=== PATIENT | female | born 1975 | race Caucasian/White ===

== ENCOUNTER 2017-10-24 17:37 | Emergency (ER) | payer BC, OTHER ==
[~2017-10-24] VITALS: Ht 167.6 cm; Wt 65.0 kg
[2017-10-24 17:40] VITALS: Ht 167.6 cm; Wt 65.0 kg
[2017-10-24] MEDS ORDERED: FAMOTIDINE 20 MG INJ IV STA (17:59)
[2017-10-24] MEDS ORDERED: SOD CHLORIDE 0.9% 1,000 ML IV STA (17:59)
[2017-10-24] MEDS ORDERED: KETOROLAC 30 MG INJ IV STA (17:59)
--- NOTE | 2017-10-24 17:59 | ERD ---
ER Documentation Chief Complaint Chief Complaint C/O MID LOWER ABD PAIN N/V SINCE TODAY. HPI 41-year-old female, previously healthy, presents to the emergency department complaining of sudden onset of abdominal pain today at 4 in the morning that woke her up. The pain is diffuse, colicky, 5/10. Associated with bilious emesis 6, nausea and general malaise. The patient took ibuprofen with mild improvement of the symptoms. Denies fever, diarrhea, constipation. No history of abdominal surgery. History provided by patient ROS A 12-point review of systems was performed and negative other than presented in the history of present illness. SYSTEMIC symptoms: no fever, chills, no night sweats, no weight loss EYE symptoms: No blurred vision, no eye discharge OTOLARYNGEAL symptoms: No hearing loss. No ear pain, no sore throat CARDIOVASCULAR symptoms: No chest pain or discomfort, no palpitations. PULMONARY symptoms: No dyspnea, no cough, no wheezing. GASTROINTESTINAL symptoms: Per HPI MUSCULOSKELETAL symptoms: No arthralgias, no muscle aches. NEUROLOGY symptoms: No confusion, no syncope, no numbness or tingling. SKIN: No rashes Medications Home Meds Active Scripts Ondansetron Hcl* (Zofran*) 4 Mg Tablet, 4 MG PO Q6H Y for NAUSEA AND OR VOMITING , #12 TAB Prov:YUE MCGRATH MD 10/24/17 Ranitidine Hcl* (Ranitidine Hcl*) 150 Mg Tablet, 150 MG PO Q12, #30 TAB Prov:YUE MCGRATH MD 10/24/17 Dicyclomine Hcl* (Bentyl*) 10 Mg Capsule, 10 MG PO QID for PAIN, #20 CAP Prov:YUE MCGRATH MD 10/24/17 Hydrocodone/Acetaminophen ([place] 5-325 Tablet) 1 Each Tablet, 1 TAB PO Q6H Y for PAIN, #12 TAB Prov:YUE MCGRATH MD 10/24/17 Allergies Allergies: Coded Allergies: No Known Allergy (Unverified , 10/24/17) Physical Exam Vitals Vital Signs Date Time Temp Pulse Resp B/P Pulse Ox O2 Delivery O2 Flow Rate FiO2 10/24/17 17:40 98.0 104 16 128/74 99 Physical Exam Patient is in no acute distress, vital signs stable. Alert and fully oriented. EYES: PERRLA, EOMI, Sclera and conjunctiva appear normal. EARS: Canals clear, tympanic membranes WNL THROAT: Normal oropharynx. NECK: Supple, No lymphadenopathy. Full ROM without pain or tenderness. HEART: RRR, no rubs, murmurs, clicks or gallops. LUNGS: Clear to auscultation. ABDOMEN: Guarded, with diffuse tenderness to deep palpation, questionable rebound, McBurney negative EXTREMITIES: No edema bilaterally. BACK: Full ROM, no deformity, normal back exam NEURO: Cranial nerves grossly intact, no motor or sensory deficit Result Diagram: 10/24/17 1815 10/24/171814 Results 24 hrs Laboratory Tests Test 10/24/17 18:07 10/24/17 18:15 Bedside Urine pH (LAB) 6.0 Bedside Urine Protein (LAB) 1+ Bedside Urine Glucose (UA) Negative Bedside Urine Ketones (LAB) Trace Bedside Urine Blood 2+ Bedside Urine Nitrite (LAB) Negative Bedside Urine Leukocyte Esterase (L Negative White Blood Count 7.910^3/ul Red Blood Count 4.7810^6/ul Hemoglobin 16.0g/dl Hematocrit 44.2% Mean Corpuscular Volume 92.5fl Mean Corpuscular Hemoglobin 33.5pg Mean Corpuscular Hemoglobin Concent 36.2g/dl Red Cell Distribution Width 13.0% Platelet Count 81681^3/UL Mean Platelet Volume 10.5fl Neutrophils % % Segmented Neutrophils % (Manual) 59% Band Neutrophils % (Manual) 34% Lymphocytes % % Lymphocytes % (Manual) 2% Reactive Lymphocytes % (Manual) 2% Monocytes % % Monocytes % (Manual) 3% Eosinophils % % Basophils % % Nucleated Red Blood Cells % 0.0/100WBC Neutrophils # 10^3/ul Neutrophils # (Manual) 4.910^3/ul Band Neutrophils # 2.610^3/ul Absolute Lymphocytes (Manual) 0.110^3/ul Lymphocytes # 10^3/ul Reactive Lymphocytes # 0.110^3/ul Monocytes # 10^3/ul Absolute Monocytes (Manual) 0.210^3/ul Eosinophils # 10^3/ul Basophils # 10^3/ul Nucleated Red Blood Cells # 10^3/ul Platelet Estimate NORMAL Sodium Level 139mmol/L Potassium Level 4.0mmol/L Chloride Level 105mmol/L Carbon Dioxide Level 23mmol/L Anion Gap 15 Blood Urea Nitrogen 16mg/dl Creatinine 0.92mg/dl Glucose Level 123mg/dl Calcium Level 9.1mg/dl Total Bilirubin 0.6mg/dl Direct Bilirubin 0.00mg/dl Indirect Bilirubin 0.6mg/dl Aspartate Amino Transf (AST/SGOT) 26IU/L Alanine Aminotransferase (ALT/SGPT) 27IU/L Alkaline Phosphatase 59IU/L Total Protein 7.5g/dl Albumin 3.8g/dl Globulin 3.70g/dl Albumin/Globulin Ratio 1.02 Lipase 67U/L Current Medications Medications (Trade) Dose Ordered Sig/Barrett Route PRN Reason Start Time Stop Time Status Last Admin Dose Admin Sodium Chloride (NS) 1,000 ml @ 1,000 mls/hr Q1H STAT IV 10/24/17 17:59 10/24/17 18:58 DC 10/24/17 18:12 Famotidine (Pepcid Iv) 20 mg ONCE STAT IV 10/24/17 17:59 10/24/17 18:04 DC 10/24/17 18:24 Ketorolac Tromethamine (Toradol) 30 mg ONCE STAT IV 10/24/17 17:59 10/24/17 18:04 DC 10/24/17 18:24 Ondansetron HCl (Zofran Inj) 4 mg ONCE STAT IV 10/24/17 18:14 10/24/17 18:26 DC 10/24/17 18:28 Ondansetron HCl (Zofran Inj) 4 mg STK-MED ONCE .ROUTE 10/24/17 18:18 10/24/17 18:19 DC Procedures/[facility] 41-year-old female, previously healthy, presents to the emergency department with sudden onset of abdominal pain associated with bilious emesis. Vital signs stable, Physical exam revealed a diffusely tender abdomen with questionable peritoneal signs Differential diagnosis include but not limited to: UTI, colitis, gastroenteritis , kidney stones, irritable bowel syndrome, inflammatory bowel syndrome, malabsorption syndrome, cholelithiasis, food intolerance, medication side effect , pancreatitis, diverticulitis, bowel obstruction. Pertinent Data: Labs: CBC: normal, CMP: normal kidney and liver function, normal electrolytes. Lipase: normal Radiology: CT abdomen normal Physical examination and clinical presentation consistent most likely with acute gastroenteritis, no acute abdomen. During the ED course the patient remained stable, no new complaints. The patient received treatment with IV fluids, Toradol, Pepcid and Zofran presenting overall improvement of the symptoms. Results and clinical impression discussed with patient who agrees with management. The patient is stable to be treated outpatient and will be discharged home with a Rx for [place], ranitidine, Bentyl, Zofran, some side effects of prescribed medications (headache, rash, nausea, vomiting, diarrhea, drowsiness, habituation, bleeding, hypertension, interactions with other medications) were reviewed. The patient was instructed to follow up with the primary care provider in the next 48h. If symptoms persist, worsen or new symptoms develop, then patient should return to the ED immediately. Instructions explained and given directly by me to the patient in [place]ese with acknowledgment and demonstrated understanding. Disclaimer: Inadvertent spelling and grammatical errors are likely due to EHR/ dictation software use and do not reflect on the overall quality of patient care. Also, please note that the electronic time recorded on this note does not necessarily reflect the actual time of the patient encounter. Departure Diagnosis: Primary Impression: Abdominal pain Additional Impression: Gastroenteritis Condition: Stable Patient Instructions: Abdominal Pain Additional Instructions: Call your primary care doctor TOMORROW for an appointment during the next 1-2 days. See the doctor sooner or return here if your condition worsens before your appointment time. Thank you very much for allowing us to participate in your care. Your health and safety is our top priority at [facility]. Have prescriptions filled and follow precisely the directions on the label. Follow-up with primary care provider during the next 4 days and bring all the information and medications prescribed. If illness has not improved in 2 days, then make an appointment with primary care provider. If the provider is unavailable, return to the Emergency Department immediately. YUE MCGRATH MD Oct 24, 2017 17:59
[2017-10-24 18:06] LABS: URINE BLOOD (Dip) POC 2+ (NEGATIVE)
[2017-10-24] MEDS ORDERED: ONDANSETRON 4 MG INJ IV STA (18:14)
[2017-10-24] MEDS ORDERED: ONDANSETRON 4 MG INJ ONE (18:18)
[2017-10-24 18:32] LABS: ABNORMAL IP MESSAGE 1; HEMATOCRIT 44.2 % (37.0-47.0); MEAN CORPUSCULAR HEMOGLOBIN 33.5 pg (29.0-33.0); MEAN CORPUSCULAR HGB CONC 36.2 g/dl (32.0-37.0); MEAN CORPUSCULAR VOLUME 92.5 fl (82.0-101.0); MEAN PLATELET VOLUME 10.5 fl (7.4-10.4); PLATELET COUNT 279 10^3/UL (140-415); RED BLOOD COUNT 4.78 10^6/ul (4.20-5.40); WHITE BLOOD COUNT 7.9 10^3/ul (4.8-10.8)
[2017-10-24 18:34] LABS: POSITIVE DIFF @See below
[2017-10-24 19:00] LABS: ALBUMIN 3.8 g/dl (3.3-4.9); ALBUMIN/GLOBULIN RATIO 1.02; BILIRUBIN,INDIRECT 0.6 mg/dl (0-1.1); BILIRUBIN,TOTAL 0.6 mg/dl (0.2-1.3); CALCIUM 9.1 mg/dl (8.4-10.2); CREATININE 0.92 mg/dl (0.44-1.00); TOTAL PROTEIN 7.5 g/dl (6.1-8.1)
--- NOTE | 2017-10-24 19:18 | RADRPT ---
PROCEDURE: CT Abdomen and Pelvis without contrast. CLINICAL INDICATION: Abdominal pain. TECHNIQUE: A CT scan of the abdomen and pelvis was performed without intravenous contrast. Tolbert l and sagittal reformatted images were generated. DICOM images are available. Images were reviewed o n a high-resolution PACS workstation. CTDIvol: 8.29 mGy. DLP: 456.89 mGy-cm. One or more of the following dose reduction techniques were used: - Automated exposure control. - Adjustment of the mA and/or kV according to patient size. - Use of iterative reconstruction technique. COMPARISON: None. FINDINGS: The lung bases are clear. Evaluation of the abdominal and pelvic viscera is limited by the lack of oral and intravenous contra st. There is a 1.5 cm right hepatic cyst. The gallbladder is normal in appearance. The common bile duct is not dilated. The spleen is not enlarged. No pancreatic lesion is identified and there is no pancr eatic ductal dilatation. The adrenal glands are unremarkable. The kidneys are normal in size. There is no perinephric fat stranding. No hydronephrosis is seen. No urinary stone is identified. The small and large bowel are normal in caliber. There is no bowel wall thickening. The appendix is normal. The urinary bladder is unremarkable. The pelvic organs are within normal limits. No lymphadenopathy is identified. There is no ascites. No pneumoperitoneum is seen. There are no art erial calcifications. No suspicious osseous lesion is idenitified. IMPRESSION: 1. No inflammation, mass, or lymphadenopathy. 2. No obstructive uropathy or urinary stone. 3. Normal appendix. RPTAT: HTAR .Jean-Pierre Modi MD, Date Time Electronically viewed and signed by .Jean-Pierre Modi MD, MD on 10/24/2017 19:18 .R/
[2017-10-24] MEDS ORDERED: DICY10CA60 PO (19:48)
[2017-10-24] MEDS ORDERED: RANI150T5 PO (19:48)
[2017-10-24] MEDS ORDERED: HYDR-906 PO (19:48)
[2017-10-24] MEDS ORDERED: ONDA4TAB8 PO (19:48)
[2017-10-24 19:52] LABS: MONOCYTES % (M) 3 % (0-11); PLATELET ESTIMATE NORMAL; REACTIVE LYMPHOCYTES% (M) 2 % (0-0)
[2017-10-24 19:58] VITALS: BP 101/72; PULSE 89; RESP 16; TEMP 98.1
== END 2017-10-24 20:15 | disposition home or self-care (01) ==
LOC: FTE 17:37 → EDBD 17:37 → FTE 17:55
DX: K52.9 Noninfective gastroenteritis and colitis, unspecified (principal)
CPT/HCPCS: 74176; 80053; 81003; 83690; 85025; J1885; J2405; J7030; 36415; 96374; 96375